=== PATIENT | male | born 1995 | race American Indian/Alaskan Native ===

== ENCOUNTER 2021-05-28 22:46 | Emergency (ER) | payer SELFPAY ==
[2021-05-29] MEDS ORDERED: levETIRAcetam 1000 MG/NS 0.75% 1,000 MG/100 ML BAG IV ONE (00:03)
[2021-05-29 01:21] LABS: Basophils % (Auto) 0.2 % (0.0-1.8); Hematocrit 45.9 % (35.5-45.6); Hemoglobin 14.8 gm/dl (11.8-15.2); Lymphocytes # (Auto) 0.7 K/mm3 (1.2-5.4); Lymphocytes % (Auto) 5.7 % (13.4-35.0); Mean Corpuscular HGB Conc 32 % (32-34); Mean Corpuscular Volume 95 fl (84-94); Monocytes # (Auto) 0.8 K/mm3 (0.0-0.8); Monocytes % (Auto) 6.2 % (0.0-7.3); Platelet Count 251 K/mm3 (140-440); Red Blood Count 4.84 M/mm3 (3.65-5.03); Red Cell Distribution Width 13.3 % (13.2-15.2)
--- NOTE | 2021-05-29 01:28 | Emergency Department Report ---
ED Seizure HPI - General Chief Complaint: Seizure Stated Complaint: SEIZURE X 5 Source: EMS Mode of arrival: Stretcher Limitations: Altered Mental Status - History of Present Illness Initial Comments: Patient is a 26-year-old male here with complaint of seizure. Patient cannot t ell me if he takes medication for seizure. He complains of left arm pain. Patient is a poor historian and is unable to give much additional history. - Related Data Allergies Allergy/AdvReac Type Severity Reaction Status Date / Time No Known Allergies Allergy Verified 05/28/21 22:52 ED Review of Systems ROS: Stated complaint: SEIZURE X 5 Other details as noted in HPI Comment: Unobtainable due to pts medical conditions ED Past Medical Hx - Past Medical History Hx Seizures: Yes - Surgical History Past Surgical History?: No - Social History Smoking Status: Unknown if ever smoked Substance Use Type: None ED Physical Exam - General Limitations: Altered Mental Status General appearance: alert - Head Head exam: Present: atraumatic, normocephalic - Eye Eye exam: Present: normal appearance - ENT ENT exam: Present: other (Patient bit his tongue) - Neck Neck exam: Present: normal inspection - Respiratory Respiratory exam: Present: normal lung sounds bilaterally. Absent: respiratory distress - Cardiovascular Cardiovascular Exam: Present: regular rate, normal rhythm. Absent: systolic murmur, diastolic murmur, rubs, gallop - GI/Abdominal GI/Abdominal exam: Present: soft, normal bowel sounds - Rectal Rectal exam: Present: deferred - Extremities Exam Extremities exam: Present: normal inspection - Back Exam Back exam: Present: normal inspection - Neurological Exam Neurological exam: Present: alert, other (appears postictal) - Psychiatric Psychiatric exam: Present: normal affect, normal mood - Skin Skin exam: Present: warm, dry, intact ED Course Vital Signs 05/29/21 05/29/21 05/29/21 00:04 00:30 01:00 Temperature 99.7 F H Temperature [ Post-Procedure] Temperature [ Pre-Procedure] Pulse Rate 95 H 94 H Pulse Rate [ Intra-Procedure ] Pulse Rate [ Post-Procedure] Pulse Rate [Pre -Procedure] Respiratory 19 22 18 Rate Respiratory Rate [Intra- Procedure] Respiratory Rate [Post- Procedure] Respiratory Rate [Pre- Procedure] Blood Pressure 142/83 143/94 Blood Pressure [Intra- Procedure] Blood Pressure [Post-Procedure ] Blood Pressure [Pre-Procedure] Blood Pressure 131/85 [Right] O2 Sat by Pulse 98 Oximetry O2 Sat by Pulse Oximetry [ Intra-Procedure ] O2 Sat by Pulse Oximetry [Post -Procedure] O2 Sat by Pulse Oximetry [Pre- Procedure] 05/29/21 05/29/21 05/29/21 01:30 02:37 03:30 Temperature 99.7 F H Temperature [ Post-Procedure] Temperature [ Pre-Procedure] Pulse Rate 94 H 85 Pulse Rate [ Intra-Procedure ] Pulse Rate [ Post-Procedure] Pulse Rate [Pre -Procedure] Respiratory 23 22 22 Rate Respiratory Rate [Intra- Procedure] Respiratory Rate [Post- Procedure] Respiratory Rate [Pre- Procedure] Blood Pressure 126/72 135/86 Blood Pressure [Intra- Procedure] Blood Pressure [Post-Procedure ] Blood Pressure [Pre-Procedure] Blood Pressure 138/79 [Right] O2 Sat by Pulse 100 Oximetry O2 Sat by Pulse Oximetry [ Intra-Procedure ] O2 Sat by Pulse Oximetry [Post -Procedure] O2 Sat by Pulse Oximetry [Pre- Procedure] 05/29/21 05/29/21 05/29/21 04:00 04:30 05:01 Temperature Temperature [ Post-Procedure] Temperature [ 99.6 F Pre-Procedure] Pulse Rate 91 H 95 H Pulse Rate [ Intra-Procedure ] Pulse Rate [ Post-Procedure] Pulse Rate [Pre 88 -Procedure] Respiratory 22 27 H Rate Respiratory Rate [Intra- Procedure] Respiratory Rate [Post- Procedure] Respiratory 12 Rate [Pre- Procedure] Blood Pressure 135/86 135/86 Blood Pressure [Intra- Procedure] Blood Pressure [Post-Procedure ] Blood Pressure 126/75 [Pre-Procedure] Blood Pressure [Right] O2 Sat by Pulse Oximetry O2 Sat by Pulse Oximetry [ Intra-Procedure ] O2 Sat by Pulse Oximetry [Post -Procedure] O2 Sat by Pulse 100 Oximetry [Pre- Procedure] 05/29/21 05/29/21 05/29/21 05:13 05:20 05:30 Temperature Temperature [ Post-Procedure] Temperature [ Pre-Procedure] Pulse Rate 89 Pulse Rate [ 93 H 98 H Intra-Procedure ] Pulse Rate [ Post-Procedure] Pulse Rate [Pre -Procedure] Respiratory 22 Rate Respiratory 22 20 Rate [Intra- Procedure] Respiratory Rate [Post- Procedure] Respiratory Rate [Pre- Procedure] Blood Pressure 130/71 Blood Pressure 137/87 141/83 [Intra- Procedure] Blood Pressure [Post-Procedure ] Blood Pressure [Pre-Procedure] Blood Pressure [Right] O2 Sat by Pulse 100 Oximetry O2 Sat by Pulse 99 100 Oximetry [ Intra-Procedure ] O2 Sat by Pulse Oximetry [Post -Procedure] O2 Sat by Pulse Oximetry [Pre- Procedure] 05/29/21 05/29/21 05/29/21 05:39 05:43 06:00 Temperature Temperature [ 99.8 F H Post-Procedure] Temperature [ Pre-Procedure] Pulse Rate 92 H Pulse Rate [ Intra-Procedure ] Pulse Rate [ 87 Post-Procedure] Pulse Rate [Pre -Procedure] Respiratory 24 Rate Respiratory Rate [Intra- Procedure] Respiratory 18 Rate [Post- Procedure] Respiratory Rate [Pre- Procedure] Blood Pressure 137/79 Blood Pressure [Intra- Procedure] Blood Pressure 135/82 [Post-Procedure ] Blood Pressure [Pre-Procedure] Blood Pressure [Right] O2 Sat by Pulse 100 Oximetry O2 Sat by Pulse Oximetry [ Intra-Procedure ] O2 Sat by Pulse 100 Oximetry [Post -Procedure] O2 Sat by Pulse Oximetry [Pre- Procedure] 05/29/21 05/29/21 05/29/21 06:30 06:58 08:51 Temperature Temperature [ Post-Procedure] Temperature [ Pre-Procedure] Pulse Rate 80 Pulse Rate [ Intra-Procedure ] Pulse Rate [ Post-Procedure] Pulse Rate [Pre -Procedure] Respiratory 19 Rate Respiratory Rate [Intra- Procedure] Respiratory Rate [Post- Procedure] Respiratory Rate [Pre- Procedure] Blood Pressure 129/70 Blood Pressure [Intra- Procedure] Blood Pressure [Post-Procedure ] Blood Pressure [Pre-Procedure] Blood Pressure 129/70 [Right] O2 Sat by Pulse 100 100 100 Oximetry O2 Sat by Pulse Oximetry [ Intra-Procedure ] O2 Sat by Pulse Oximetry [Post -Procedure] O2 Sat by Pulse Oximetry [Pre- Procedure] 05/29/21 09:01 Temperature Temperature [ Post-Procedure] Temperature [ Pre-Procedure] Pulse Rate 81 Pulse Rate [ Intra-Procedure ] Pulse Rate [ Post-Procedure] Pulse Rate [Pre -Procedure] Respiratory 16 Rate Respiratory Rate [Intra- Procedure] Respiratory Rate [Post- Procedure] Respiratory Rate [Pre- Procedure] Blood Pressure Blood Pressure [Intra- Procedure] Blood Pressure [Post-Procedure ] Blood Pressure [Pre-Procedure] Blood Pressure 123/70 [Right] O2 Sat by Pulse 100 Oximetry O2 Sat by Pulse Oximetry [ Intra-Procedure ] O2 Sat by Pulse Oximetry [Post -Procedure] O2 Sat by Pulse Oximetry [Pre- Procedure] - Reevaluation(s) Reevaluation #2: 05/29/21 06:15 X-ray shows likely successful reduction. Labs notable for mildly elevated anion gap, CO2 of 12. Patient is receiving fluids and has a repeat BMP ordered. - Moderate Sedation Indications: fracture/dislocation redu ASA Class: I Mallampati Airway Score: 1 Time of Last PO Intake: 00:00 Preparation: monitor car operator applied, pulse oximeter, capnometry used, supplemental O2 applied, suction/airway equipment at bedside IV Propofol Dose (mgs): 160 Complications: none Patient Tolerated Procedure: well - Orthopedic Joint Reduction Joint #1 Consent Obtained: written consent Time Out Performed: Yes Side: left Joint Reduction Location: shoulder Analgesia: moderate sedation Shoulder Technique Used (if applicable): traction/counter-traction, external rotation Technique Used: traction/counter-traction Post-Reduction Neuro Exam: intact Post-Reduction Vascular Exam: intact Post Reduction X-Ray Obtained: Yes Post Reduction X-Ray Results: reduced Splint Applied: Yes Patient Tolerated Procedure: well ED Medical Decision Making - Lab Data Result diagrams: 05/29/21 00:48 05/29/21 07:03 - Radiology Data Radiology results: report reviewed - Medical Decision Making 26-year-old male here after seizure. Patient unable to tell if he is on seizure medication. Patient is being started on Keppra 1 g, will obtain CT head, basic labs and x-ray of the left shoulder. Will reassess. Critical care attestation.: If time is entered above; I have spent that time in minutes in the direct care of this critically ill patient, excluding procedure time. ED Disposition Clinical Impression: Seizure, Shoulder dislocation Disposition: 01 HOME / SELF CARE / HOMELESS Is pt being admited?: No Does the pt Need Aspirin: No Condition: Stable Instructions: Shoulder Dislocation, Seizure, Adult, [id number] Additional Instructions: Please follow-up with a primary care physician. You have been given a referral for a local orthopedist, Dr. Lizama, to follow-up regarding your shoulder dislocation. You have been given a referral for a local neurologist, Dr. Lacey, to follow-up regarding your seizures. Because of your seizures, you cannot drive or operate any heavy machinery for at least 6 months or until cleared by a neurologist. Please avoid any illicit drug use, alcohol use, excessive caffeine use, and try to get 8 hours of uninterrupted sleep at night. Return to the emergency department with any worsening of your symptoms, new or concerning symptoms not addressed during this current emergency department visit, or with any acute distress. Referrals: STEVEN LACEY MD [Referring] - 3-5 Days KRISHNA LIZAMA MD [Staff Physician] - 7-10 days
[2021-05-29 02:16] LABS: Alanine Aminotransferase 19 units/L (7-56); Albumin 4.5 g/dL (3.9-5); BUN/Creatinine Ratio 11; Blood Urea Nitrogen 11 mg/dL (9-20); Calcium 9.7 mg/dL (8.4-10.2); Hemolysis Index 82
--- NOTE | 2021-05-29 02:30 | XRay Report ---
Left shoulder, 2 views HISTORY: Seizure, concern for dislocation COMPARISON: None FINDINGS: The left humeral head projects slightly posteriorly with respect to the glenoid on somewhat limited scapular Y view. The humerus is held in internal rotation on frontal projection. No discrete fracture is identified. IMPRESSION: Left humeral head projects slightly posteriorly with respect to the glenoid on limited sc apular Y view. Findings are concerning for posterior dislocation. Recommend correlation with axillary view. Signer Name: Jcarlos Wade MD Signed: 05/29/2021 2:25 AM Workstation Name: [id number]
[2021-05-29] MEDS ORDERED: propofoL 200 MG/20 ML VIAL IV ONE (02:53)
[2021-05-29 03:32] LABS: Bilirubin,Urine NEG (Negative); Blood,Urine NEG (Negative); Color,Urine Straw (Yellow); Mucus,Urine FEW /HPF; Protein,Urine <15 mg/dL mg/dL (Negative); RBC,Urine < 1.0 /HPF (0.0-6.0); Urobilinogen,Urine < 2.0 mg/dL (<2.0)
[2021-05-29] MEDS ORDERED: SODIUM CHLORIDE 0.9% 500 ML 500 ML ONE (05:04)
--- NOTE | 2021-05-29 05:58 | XRay Report ---
Left shoulder, 2 views HISTORY: Postreduction COMPARISON: Same-day radiograph FINDINGS: The arm is held in internal rotation on frontal view. Humeral head projects over the scapul a on scapular Y view. There is flattening of the anteromedial humeral head, likely reflecting reverse Hill-Sachs deformity. No additional fracture. IMPRESSION: 1. Apparent successful reduction of the posterior left shoulder dislocation. Recommend confirmation w ith axillary view. 2. Reverse Hill-Sachs deformity. Signer Name: Jcarlos Wade MD Signed: 05/29/2021 5:54 AM Workstation Name: [id number]
[2021-05-29] MEDS ORDERED: SODIUM CHLORIDE 0.9% 1000 ML 1,000 ML IV ONE ×2 (06:12→06:14)
[2021-05-29 07:36] LABS: BUN/Creatinine Ratio 11; Blood Urea Nitrogen 11 mg/dL (9-20); Calcium 9.4 mg/dL (8.4-10.2); Hemolysis Index 7
[2021-05-29 09:01] VITALS: BP 123/70
== END 2021-05-29 09:09 | disposition home or self-care (01) ==
LOC: ED 22:46
DX: S43.005A Unspecified dislocation of left shoulder joint, initial encounter (principal); R56.9 Unspecified convulsions; X58.XXXA Exposure to other specified factors, initial encounter; Y93.9 Activity, unspecified; Y92.9 Unspecified place or not applicable; Y99.9 Unspecified external cause status
CPT/HCPCS: 23650; 36415; 73030; 80048; 80053; 81001; 85025; 96361; 96374; 99284; J1953; J2704; J7030; J7040; J7120; Q0162